=== PATIENT | male | born 1995 | race Caucasian/White ===

== ENCOUNTER 2021-03-12 14:38 | Emergency (ER) | payer OTHER, BC ==
[2021-03-12] MEDS ORDERED: Lidocaine 1% 10 ML MDV INJECT ONE (15:17)
[2021-03-12] MEDS ORDERED: Diphtheria,Pertussis(Acell),Tetanus Vaccine 0.5 ML Syringe IM ONE (15:18)
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
[2021-03-12] MEDS ORDERED: Orphenadrine 100 MG Tab.ER PO ONE ×2 (17:30→17:35)
--- NOTE | 2021-03-13 06:31 | CT ---
Head CT Technique: Multiple axial sections through the brain were obtained. Intravenous contrast was not utilized. Reconstructed coronal and sagittal images were obtained. Comparison: No prior intracranial imaging is available. Findings: Ventricles along with basal cisterns and sulci over the convexities are within normal limits for the patient's age. No abnormal parenchymal densities are seen. No evidence of intracranial hemorrhage is seen. No midline shift or mass-effect is seen. Bone window settings were reviewed. Visualized mastoid sinuses and paranasal sinuses show nothing acute. No acute calvarial finding is seen. Slight soft tissue injury is noted within the frontal right sided scalp. Impression: 1. Soft tissue injury noted within the right frontal scalp. 2. No acute intracranial abnormality is otherwise seen. Diagnostic code #3 I agree with preliminary report from [facility], finalized on 03/12/21, 4:55 PM [employer] OFFICER, code 1
--- NOTE | 2021-03-13 07:02 | CT ---
CT cervical spine Technique: Multiple axial sections were obtained from above C1 inferiorly to the bottom of T2. Reconstructed coronal and sagittal images were obtained. Comparison: No prior cervical spine imaging is available. Findings: Vertebral body heights and disc spaces are maintained. No bony central or bony neural foraminal stenosis is seen. Apophyseal joints appear within normal limits. Slight loss of normal lordosis is seen. No fracture or subluxation is seen. Impression: 1. Loss of normal lordosis which most likely is positional. 2. Nothing acute is appreciated on CT study of the cervical spine. Diagnostic code #2 I agree with preliminary report from [facility], finalized on 03/12/21, 4:56 PM [employer]ER, code 1
== END 2021-03-12 18:05 | disposition home or self-care (01) ==
LOC: JD.ED 14:38
DX: S01.01XA Laceration without foreign body of scalp, initial encounter (principal); S16.1XXA Strain of muscle, fascia and tendon at neck level, initial encounter; Z23 Encounter for immunization; V86.69XA Passenger of other special all-terrain or other off-road motor vehicle injured in nontraffic accident, initial encounter; Y92.410 Unspecified street and highway as the place of occurrence of the external cause
CPT/HCPCS: 12002; 70450; 72125; 90471; 90715; 99283; A9270; 99284